=== PATIENT | male | born 1955 | race Caucasian/White ===

== ENCOUNTER 2017-11-05 05:54 | Day surgery (SDC) | payer BC ==
--- NOTE | 2017-10-29 12:40 | HP ---
HISTORY OF PRESENT ILLNESS: Raul Jara is a 61-year-old male patient presents with a left inguina l hernia, found on exam today to have a right inguinal hernia. Plan is robotic mesh repair of bilate ral inguinal hernias. He had a colonoscopy with Dr. Ford 2 years ago. PAST SURGICAL HISTORY: In 2010, cholecystectomy that I performed requiring postoperative ERCP, repea t x2-3 for decompression. TOBACCO: None. ALCOHOL: None. MEDICATIONS: Multivitamins. ALLERGIES: None. FAMILY HISTORY: Noncontributory. REVIEW OF SYSTEMS: Ten point noncontributory. 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 VITAL SIGNS: Weight 206 pounds, 6 foot, 97.5 degrees, 119/70, 74. HEENT: Unremarkable. LUNGS: Clear to auscultation. CARDIAC: Regular rate and rhythm without murmur or gallop. ABDOMEN: Soft, nontender, no masses. EXTREMITIES: Unremarkable. : On standing, his testicles are normal. Left inguinal hernia present on standing, increases with Valsalva. Right inguinal hernia present on standing, enlarging on Valsalva, smaller. ASSESSMENT AND PLAN: Bilateral inguinal hernias. I recommend robotic repair using mesh as an outpat ient. Risk of infection, bleeding, reoperation, recurrence of the hernia, chronic pain discussed, qu estions answered.
[2017-11-01 10:51] VITALS: BMI 23.0
[2017-11-05] MEDS ORDERED: Fentanyl 250 MCG/5 ML VIAL ONE (06:08)
[2017-11-05] MEDS ORDERED: Midazolam HCl 2 mg/2 ml Vial ONE (06:08)
[2017-11-05] MEDS ORDERED: Lidocaine 2% Jelly 5 ML TUBE ONE (06:08)
[2017-11-05] MEDS ORDERED: Ketorolac Tromethamine 30 MG/ML VIAL ONE (06:24)
[2017-11-05] MEDS ORDERED: CEFAZOLIN/Water 2 GM/20 ML SYRINGE ONE (06:24)
[2017-11-05] MEDS ORDERED: Bupivacaine/Epinephrine 0.25% 30 ML VIAL ONE (07:12)
--- NOTE | 2017-11-05 10:51 | OP ---
DATE OF PROCEDURE: 11/05/2017 PREOPERATIVE DIAGNOSES: Large indirect left inguinal hernia, a moderate sized direct right inguinal hernia. POSTOPERATIVE DIAGNOSES: Large indirect left inguinal hernia, a moderate sized direct right inguinal hernia. PROCEDURE: 3DMax large mesh repair of bilateral inguinal hernias, robotic. SURGEON: Dr. Srinath Price ANESTHESIA: General. Local 0.5% Marcaine with epinephrine. PROCEDURE: The patient was taken to the operating room where under general anesthesia, Lindquist cathete r placed at the beginning of the procedure and removed at the end. Abdomen prepared with ChloraPrep, draped in routine fashion. Local anesthetic infiltrated in skin and subcutaneous tissue about each port site for an ilioinguinal nerve block. Incision was made supraumbilical midline and pneumoperito neum to 15 mmHg obtained with the Veress needle, replacing with an 11 port balloon. Bilateral subcos priyanka lateral upper abdominal incisions made and 11 and 8 mm ports placed under laparoscopic visualizat ion. At this point, as the ports were placed, the robot was docked and placed in good position and r obotic inguinal hernia repair undertaken. After proper positioning, the pelvis was evaluated and he was noted to have a small to moderate sized direct right inguinal hernia, indirect left inguinal tavo ia. The peritoneum taken down from the anterior superior iliac spine to the midline bilaterally ochoa sversely using power scissors. Dissection carried out freeing the peritoneal flap on both sides begi nning laterally advancing medially, identifying Ba's ligament and dissection laterally on the lef t, identified a large inguinal hernia. This indirect inguinal hernia was dissected free, sac freed f rom the cord structures keeping vascular structures free of harm and keeping the inferior epigastric arteries free of harm. Dissection carried out carefully laterally, freeing the peritoneal flap to ac commodate the mesh. Likewise dissection carried on the right as described for the left, identifying the direct hernia as described. Ba's ligament identified. Cord structures identified and direct hernia sac was not present. Cord skeletonized and lateral dissection freed the space to accommodate the mesh. 3DMax Bard mesh placed laparoscopically robotically position over the floor of the pelvis , covering the cord structures for at least 4-6 cm in position and securing the mesh medially on both sides with 2-0 Vicryl suture to Ba's ligament and securing the mesh just lateral to the inferior epigastric arteries superiorly with 2-0 Vicryl suture air knot. Mesh was properly positioned, as go od hemostasis was noted a peritoneal flap was closed with continuous suture of 2-0 V-Loc suture compl eting a laparoscopic repair and noting good hemostasis. The sponge and needle counts were correct, t he midline fascia supraumbilical was closed with a GraNee needle under laparoscopic visualization usi ng 0 Vicryl suture. Pneumoperitoneum reduced. All instruments removed and all skin incisions approx imated with interrupted subdermal 4-0 Monocryl and DermaGlue applied. The patient tolerated the proc edure well.
[2017-11-05] MEDS ORDERED: Dexamethasone 20 MG/5 ML VIAL ONE (14:41)
[2017-11-05] MEDS ORDERED: Ondansetron HCl/PF 4 MG/2 ML Vial ONE (14:41)
[2017-11-05] MEDS ORDERED: ePHEDrine/0.9% NaCl/PF SYRINGE 50 mg/10 ml ONE (14:41)
[2017-11-05] MEDS ORDERED: PROPOFOL 200 MG/20 ML VIAL ONE (14:41)
[2017-11-05] MEDS ORDERED: Lidocaine 1% PF 5 ML VIAL ONE (14:41)
[2017-11-05] MEDS ORDERED: Glycopyrrolate 0.2 MG/ML 5 ML SYRINGE ONE (14:41)
== END 2017-11-05 12:00 | disposition home or self-care (01) ==
LOC: SDC 05:54 → EEVIPCON 09:15 → SDC 12:00
PROVIDERS: ATTEND Specialist
PROC: 0YUA4JZ Supplement Bilateral Inguinal Region with Synthetic Substitute, Percutaneous Endoscopic Approach (ICD-10-PCS; principal; 2017-11-05)
DX: K40.20 Bilateral inguinal hernia, without obstruction or gangrene, not specified as recurrent (principal); Z79.899 Other long term (current) drug therapy
CPT/HCPCS: C1781; J0131; J1100; J1885; J2001; J2250; J2405; J2704; J3010